=== PATIENT | female | born 1985 | race Caucasian/White ===

== ENCOUNTER 2021-08-06 15:25 | Emergency (ER) | payer BC ==
[~2021-08-06] VITALS: Ht 170.2 cm; Wt 75.3 kg
[2021-08-06] MEDS ORDERED: NOVOLIN R100 UNIT/1 (15:35)
== END 2021-08-06 18:15 | disposition home or self-care (01) ==
LOC: EMR PED 15:25 → ER 15:25
DX: T75.1XXA Unspecified effects of drowning and nonfatal submersion, initial encounter (principal); W69.XXXA Accidental drowning and submersion while in natural water, initial encounter; Y92.832 Beach as the place of occurrence of the external cause